=== PATIENT | male | born 1960 | race Caucasian/White ===

== ENCOUNTER → 2017-02-08 | Outpatient (CLI) | payer MEDICAID ==
[2017-02-08 09:56] LABS: ALT 51 U/L (21-72); AST 37 U/L (17-59); Alkaline Phosphatase 57 U/L (38-126); Anion Gap 13 mmol/L; Blood Urea Nitrogen 10 mg/dL (9-20); Calcium 9.7 mg/dL (8.4-10.2); Carbon Dioxide 26 mmol/L (22-30); Chloride 105 mmol/L (98-107); Cholesterol 204 mg/dL (<200); Glucose 89 mg/dL (74-99); HDL Cholesterol 72 mg/dL (40-60); Non-African American GFR(MDRD) >60 (>60 ml/min/1.73 sqM); Potassium 4.3 mmol/L (3.5-5.1); Sodium 144 mmol/L (137-145); Total Protein 7.8 g/dL (6.3-8.2); Triglycerides 149 mg/dL (<150)
[2017-02-08 10:10] LABS: Basophils # (A) 0.1 k/uL (0-0.2); Basophils % (A) 1 %; CH 35.4; CHCM 34.4; Eosinophils # (A) 0.3 k/uL (0-0.7); Eosinophils % (A) 7 %; HCT 49.9 % (39.0-53.0); HGB 16.4 gm/dL (13.0-17.5); Luc # (Auto) 0.19; Luc % (Auto) 4; Lymphocytes # (A) 1.7 k/uL (1.0-4.8); Lymphocytes % (A) 33 %; MCHC 32.9 g/dL (31.0-37.0); MCV 103.3 fL (80.0-100.0); Macrocytosis Slight; Mean Platelet Volume 7.6; Monocytes # (A) 0.5 k/uL (0-1.0); Monocytes % (A) 9 %; Neutrophils # (A) 2.4 k/uL (1.3-7.7); Neutrophils % (A) 47 %; RBC 4.83 m/uL (4.30-5.90); RDW 12.2 % (11.5-15.5); WBC 5.1 k/uL (3.8-10.6); WBC (Perox) 4.98
--- NOTE | 2017-02-08 11:04 | ECHOS ---
DATE OF SERVICE: 02/08/2017 AGE: 56Y SEX: M HT: 71" WT: 169 lbs. Protocol Mike: X Others: Stress Echo Stage: 3 Dur. of Exercise: 7:00 *Heart Rate Blood Pressure *Rest: 88 Rest: 154/79 * *Max. Achieved: 167 Maximum BP: 191/85 85% PMHR: 141 100% PMHR: 166 *METS: 8.0 INDICATIONS: Abnormal EKG. MEDICATIONS: Simvastatin, bisoprolol, Tramadol, Didi. Baseline EKG shows sinus rhythm, normal axis, poor R-wave progression. Patient exercised on Mike protocol for a total of 7 minutes, achieving 8 METs, 99% of predicted maximal heart rate without chest pain. At peak exercise, patient became very short of breath and developed [address]-segment depression in the inferolateral leads. Baseline echo shows normal left ventricular size and systolic function with an ejection fraction of 50% to 55%. The inferoposterior wall appears hypokinetic suggestive of prior myocardial infarction. Post exercise, there is normal hyperdynamic response of the anterior wall, lateral wall, septum and the inferior wall. The inferoposterior wall remains unchanged. CONCLUSION: 1. Average exercise tolerance. 2. Abnormal stress test by EKG criteria. 3. Abnormal stress echocardiogram as described above.
== END | disposition home or self-care (01) ==
LOC: RADNMMAIN 08:40
PROVIDERS: ATTEND Family Medicine
DX: R94.31 Abnormal electrocardiogram [ECG] [EKG] (principal); I10 Essential (primary) hypertension
CPT/HCPCS: 80053; 80061; 84439; 84443; 85025; 93017; 93350

== ENCOUNTER 2017-04-05 07:19 | Day surgery (SDC) | payer MEDICAID ==
[2017-04-03 14:52] VITALS: BMI 23.4
[~2017-04-05 07:19] MED LIST: ALPRAZolam 0.25 MG TAB PO PRN; ASPIRIN 325 MG TAB PO ONE; SODIUM CHLORIDE 0.9% 1,000 ML in EMPTY BAG 1 BAG IV ONE
[2017-04-05] MEDS ORDERED: ASPIRIN 81 MG CHEW ONE (07:21)
[2017-04-05 07:28] VITALS: BP 168/98; PULSE 76; RESP 16; TEMP 98.1
[2017-04-05] MEDS ORDERED: SODIUM CHLORIDE 0.9% 1,000 ML IV ONE (07:30)
[2017-04-05] MEDS ORDERED: LIDOCAINE 2% INJ 20 MG/ML (20 ML MDV) ONE (07:41)
[2017-04-05 07:42] LABS: Basophils # (A) 0.1 k/uL (0-0.2); Basophils % (A) 1 %; CH 35.5; CHCM 34.5; Eosinophils # (A) 0.5 k/uL (0-0.7); Eosinophils % (A) 7 %; HCT 49.2 % (39.0-53.0); HDW 2.12; HGB 16.4 gm/dL (13.0-17.5); Luc # (Auto) 0.16; Luc % (Auto) 3; Lymphocytes # (A) 1.7 k/uL (1.0-4.8); Lymphocytes % (A) 28 %; MCH 34.4 pg (25.0-35.0); MCHC 33.2 g/dL (31.0-37.0); MCV 103.4 fL (80.0-100.0); Macrocytosis Slight; Mean Platelet Volume 7.3; Monocytes # (A) 0.4 k/uL (0-1.0); Monocytes % (A) 7 %; Neutrophils # (A) 3.3 k/uL (1.3-7.7); Neutrophils % (A) 54 %; RBC 4.76 m/uL (4.30-5.90); RDW 12.5 % (11.5-15.5); WBC 6.2 k/uL (3.8-10.6); WBC (Perox) 6.07
[2017-04-05 07:50] LABS: Anion Gap 9 mmol/L; Blood Urea Nitrogen 13 mg/dL (9-20); Calcium 9.5 mg/dL (8.4-10.2); Carbon Dioxide 24 mmol/L (22-30); Chloride 108 mmol/L (98-107); Glucose 89 mg/dL (74-99); Non-African American GFR(MDRD) >60 (>60 ml/min/1.73 sqM); Sodium 141 mmol/L (137-145)
[2017-04-05] MEDS ORDERED: fentaNYL (PF) 50 MCG/ML 2 ML AMP ONE (07:52)
[2017-04-05 07:53] LABS: Potassium 4.8 mmol/L (3.5-5.1)
[2017-04-05] MEDS ORDERED: MIDAZOLAM 2 MG/2 ML VIAL ONE (07:53)
[2017-04-05] MEDS ORDERED: amLODIPine 5 MG TAB PO STA (08:28)
[2017-04-05] MEDS ORDERED: amLODIPine 5 MG TAB ONE (08:29)
== END 2017-04-05 08:43 | disposition home or self-care (01) ==
LOC: CATHCVL 07:19
PROVIDERS: ATTEND Internal Medicine Cardiovascular Disease
DX: R07.9 Chest pain, unspecified (principal); R94.39 Abnormal result of other cardiovascular function study; Z53.8 Procedure and treatment not carried out for other reasons; I10 Essential (primary) hypertension; E78.00 Pure hypercholesterolemia, unspecified; E78.5 Hyperlipidemia, unspecified; Z82.49 Family history of ischemic heart disease and other diseases of the circulatory system; Z79.899 Other long term (current) drug therapy; Z88.5 Allergy status to narcotic agent; F17.290 Nicotine dependence, other tobacco product, uncomplicated
CPT/HCPCS: 80048; 85025

== ENCOUNTER → 2017-04-12 | Day surgery (SDC) | payer MEDICAID ==
[2017-04-10 13:14] VITALS: BMI 23.3
[~2017-04-12] MED LIST changes: +ASPIRIN 81 MG CHEW PO SCH; +ATORVASTATIN 20 MG TAB PO SCH; +IOHEXOL 350 MG/ML 125ML BOTTLE INJ ONE; +LIDOCAINE 2% INJ 20 MG/ML SQ ONE; +LISINOPRIL 5 MG TAB PO SCH; +METOPROLOL TARTRATE 25 MG TAB PO SCH; +METOPROLOL TARTRATE 25 MG TAB PO STA; +MIDAZOLAM 2 MG/2 ML VIAL IVP ONE; +MIDAZOLAM 2 MG/2 ML VIAL ONE; +NITROGLYCERIN 1000MCG/10ML SYRINGE INTRACORON ONE; +RX INFO: IV CONTRAST WAS GIVEN 1 EACH MISC MISCELLANE PRN; +SODIUM CHLORIDE 0.9% 1,000 ML IV SCH; +diphenhydrAMINE 50 MG/ML 1 ML VIAL IVP ONE; +diphenhydrAMINE 50 MG/ML 1 ML VIAL ONE; +fentaNYL (PF) 50 MCG/ML 2 ML AMP IV ONE; +fentaNYL (PF) 50 MCG/ML 2 ML AMP ONE
[2017-04-12 07:40] VITALS: TEMP 98.3
--- NOTE | 2017-04-12 09:09 | P.PCN ---
Date of Procedure: 04/12/17 Preoperative Diagnosis: Positive stress test and chest pain Postoperative Diagnosis: Borderline 60% stenosis in the mid LAD which is calcified Procedure(s) Performed: Left heart catheterization Implants: Indications for Procedure: Operative Findings: Description of Procedure: HISTORY: This is a 56-year-old gentleman with history of hypertension, hypercholesterolemia and family history of ischemic heart disease who has been experiencing chest pain and shortness of breath. Patient had a stress echocardiogram. Patient developed shortness of breath, and [address] depression on the EKGs. Stress echo was reported as showing a fixed defect in the inferior wall. Patient is advised to have cardiac catheterization for definitive diagnosis. Patient also given the option of having a nuclear stress test but preferred to have cardiac cath. CONSENT:I have discussed the risks, benefits and alternative therapies for the above-mentioned procedure and for both sedation/analgesia as well as necessary blood product administration, if indicated, as they pertain to this patient. The patient has indicated understanding and acceptance of the risks and procedures discussed. PROCEDURE: Patient was brought to the lab in a fasting state. Patient was given some IV sedation. The right groin is infiltrated with lidocaine and right femoral artery was entered using Seldinger technique. A 6-Kosovan catheter was left in place and selective coronary arteriography was performed. Patient tolerated the procedure well. Femoral angiogram was performed and Angio -Seal was applied for hemostasis. No immediate complications were noted and patient was transferred to [facility] in a stable condition HEMODYNAMICS: The aortic pressure is 130/80. Left ankle end-diastolic pressure is 8. There was no gradient across the aortic valve SELECTIVE CORONARY ARTERIOGRAPHY: LEFT MAIN: Normal length and patent THE LEFT ANTERIOR DESCENDING CORONARY ARTERY: Good caliber vessel with a calcified plaque in the midportion with about 50-60% stenosis. The rest of the vessel are free of occlusive disease. THE LEFT CIRCUMFLEX AND IS CORONARY ARTERY: This is a moderate caliber vessel free of any significant occlusive disease. THE RIGHT CORONARY ARTERY: This is a moderate caliber vessel and codominant without any significant obstructive disease LEFT VENTRICULOGRAPHY: Not performed FINAL IMPRESSION: #1. Moderate plaque in the mid LAD with about 50-60% stenosis. The rest of the vessels are free of occlusive disease PLAN: Maximum medical therapy and this factor modification. May consider doing a nuclear stress test to rule out any ischemia in the LAD territory. PROGNOSIS: Fair
[2017-04-12 10:01] VITALS: RESP 16
[2017-04-12 13:28] VITALS: BP 148/85; PULSE 84
== END | disposition home or self-care (01) ==
LOC: CATHCVL 07:13
PROVIDERS: ATTEND Internal Medicine Cardiovascular Disease
DX: I25.118 Atherosclerotic heart disease of native coronary artery with other forms of angina pectoris (principal); I25.84 Coronary atherosclerosis due to calcified coronary lesion; I10 Essential (primary) hypertension; Z82.49 Family history of ischemic heart disease and other diseases of the circulatory system; F17.290 Nicotine dependence, other tobacco product, uncomplicated; E78.00 Pure hypercholesterolemia, unspecified; E78.5 Hyperlipidemia, unspecified; Z88.5 Allergy status to narcotic agent
CPT/HCPCS: 93458; 99152; 99153; C1760; C1894; C1769; J2001; J2250; J1200; J3010; Q9967

== ENCOUNTER → 2017-11-08 | Outpatient (CLI) | payer MEDICAID ==
--- NOTE | 2017-11-08 12:09 | FL ---
EXAMINATION TYPE: FL UGI air w esophagus DATE OF EXAM: 11/08/2017 COMPARISON: NONE HISTORY: Worsening gastroesophageal reflux for 6 months. TECHNIQUE: A double contrast UGI and esophagram study is performed utilizing 2 minutes and 11 second s of fluoroscopy time with 60 images saved. FINDINGS: The esophagus shows normal motility and emptying into the stomach. No evidence of hiatal hernia or s tricture noted. The stomach shows normal distensibility, peristalsis, and mucosal folds. Focal pooling of contrast is seen along the greater curvature of the stomach in the region of the gastric fundus on multiple imag es. No heaping of adjacent mucosa is seen to suggest inflammatory change although this finding remain s suspicious for a focal ulcer. This is superimposed upon diffuse enlargement of the rugal folds most compatible with gastritis. Minimal significant gastroesophageal reflux was seen during real time per formance of this study to the level of the distal esophagus just cranial to the gastroesophageal junc tion. The duodenal bulb, sweep, and proximal small bowel loops are unremarkable. IMPRESSION: 1. Focal pooling of radiotracer within the gastric fundus along the greater curvature suspicious for ulceration. Direct visualization is recommended. 2. Diffuse rugal fold thickening most commonly related to gastritis. 3. No evidence of hiatal hernia. 4. Minimal gastroesophageal reflux just cranial to the gastroesophageal junction in the gravity indep endent portion while utilizing the Valsalva maneuver. No reflux in the gravity dependent portion of t he exam.
== END | disposition home or self-care (01) ==
LOC: RADFLMAIN 10:43
PROVIDERS: ATTEND Family Medicine
DX: K21.9 Gastro-esophageal reflux disease without esophagitis (principal); K22.8 Other specified diseases of esophagus; I49.3 Ventricular premature depolarization
CPT/HCPCS: 74246; 93225; 93226

== ENCOUNTER → 2017-11-22 | Outpatient (CLI) | payer MEDICAID ==
[2017-11-22 10:28] LABS: Non-African American GFR(MDRD) >60 (>60 ml/min/1.73 sqM)
--- NOTE | 2017-11-22 13:14 | MR ---
EXAMINATION TYPE: MR brain wo/w con DATE OF EXAM: 11/22/2017 COMPARISON: NONE HISTORY: Cortical blindness, right side of brain TECHNIQUE: Multiplanar, multisequence images of the brain and brainstem is performed without and with IV contras t, utilizing 7.5 mL intravenous Gadavist . FINDINGS: Diffusion weighted images demonstrate no evidence of a recent infarct or other diffusion ab normality. There is no extra-axial fluid collection. Punctate right frontal, left frontal and left p arietal foci of T2/FLAIR hyperintensity measuring 1 to 2 mm are seen within the periventricular and s ubcortical white matter on inversion recovery axial fat sat images 15, 17, and 22. The ventricular sy stem and cisternal spaces are normal in size and appearance. The brain volume is age appropriate. Midline structures demonstrate normal morphology. The craniocervical junction appears within normal limits. Major flow voids are maintained with note made of a right dominant and tortuous vertebral art manpreet. Mild mucosal thickening is seen within the left maxillary and ethmoid sinuses. Scant mucosal thi ckening is noted within the right maxillary and frontal as well as sphenoid sinuses. The dural venous sinuses appear patent. The globes are intact and symmetric maintaining a normal configuration. Optic nerves are symmetric as are the nerve sheaths. No cerebellar pontine angle mass. Incidental note is made of a 3 mm pineal gland cyst. An extra-axial left anterior cranial fossa mass with mass effect upon the gyrus rectus is seen there is T1 and T2 isointense to philip matter and is bilobed best seen on T1 axial postcontrast fat sat imag e 10 measuring 2.1 x 1.3 x 1.2 cm. This is homogeneous internal enhancement and abuts the A1 and prox imal A2 segments of the anterior cerebral artery as well as the M1 segment of the left middle cerebra l artery. This is separate from the pituitary gland. IMPRESSION: 1. Extra-axial anterior cranial fossa mass abutting and nearly encasing the left anterior cerebral an d middle cerebral arteries measuring 2.1 cm. This has MR features favoring a meningioma, however aneu rysm should be excluded with MRA. 2. Few nonenhancing foci of white matter change, likely on the basis of chronic microangiopathy. 3. Mild pansinusitis.
== END | disposition home or self-care (01) ==
LOC: RADMRIMAIN 09:55
PROVIDERS: ATTEND Family Medicine
DX: G93.89 Other specified disorders of brain (principal); R90.82 White matter disease, unspecified; H47.611 Cortical blindness, right side of brain
CPT/HCPCS: 82565; 70553; 36415; A9581

== ENCOUNTER 2017-11-23 13:34 | Day surgery (SDC) | payer MEDICAID ==
[2017-11-21 14:58] VITALS: BMI 23.7
[~2017-11-23 13:34] MED LIST changes: -ALPRAZolam 0.25 MG TAB PO PRN; -ASPIRIN 325 MG TAB PO ONE; -ASPIRIN 81 MG CHEW PO SCH; -ATORVASTATIN 20 MG TAB PO SCH; -IOHEXOL 350 MG/ML 125ML BOTTLE INJ ONE; +LACTATED RINGERS 1,000 ML IV SCH; -LIDOCAINE 2% INJ 20 MG/ML SQ ONE; -LISINOPRIL 5 MG TAB PO SCH; -METOPROLOL TARTRATE 25 MG TAB PO SCH; -METOPROLOL TARTRATE 25 MG TAB PO STA; -MIDAZOLAM 2 MG/2 ML VIAL IVP ONE; -MIDAZOLAM 2 MG/2 ML VIAL ONE; -NITROGLYCERIN 1000MCG/10ML SYRINGE INTRACORON ONE; -RX INFO: IV CONTRAST WAS GIVEN 1 EACH MISC MISCELLANE PRN; -SODIUM CHLORIDE 0.9% 1,000 ML IV SCH; -SODIUM CHLORIDE 0.9% 1,000 ML in EMPTY BAG 1 BAG IV ONE; -diphenhydrAMINE 50 MG/ML 1 ML VIAL IVP ONE; -diphenhydrAMINE 50 MG/ML 1 ML VIAL ONE; -fentaNYL (PF) 50 MCG/ML 2 ML AMP IV ONE; -fentaNYL (PF) 50 MCG/ML 2 ML AMP ONE
[2017-11-23 13:44] VITALS: TEMP 98.4
[2017-11-23] MEDS ORDERED: LACTATED RINGERS 1,000 ML IV ONE (13:44)
[2017-11-23] MEDS ORDERED: LIDOCAINE 1% 20 ML VIAL (10MG/ML) FOR IV START INTRADERMA ONE (13:56)
[2017-11-23] MEDS ORDERED: PROPOFOL 10 MG/ML 20 ML VIAL IV ONE (14:58)
[2017-11-23] MEDS ORDERED: LIDOCAINE 1% INJ 10MG/ML (20 ML MDV) ONE (14:58)
[2017-11-23 15:29] VITALS: RESP 16
[2017-11-23 15:39] VITALS: BP 165/85; PULSE 74
--- NOTE | 2017-11-23 15:39 | P.PCN ---
Date of Procedure: 11/23/17 Procedure(s) Performed: Procedure: Esophagogastroduodenoscopy and biopsy. Preoperative diagnosis: Epigastric pain and abnormal upper GI. Postoperative diagnosis: 1. Small sliding hiatal hernia with mild corrugations in the esophagus raising the possibility of eosinophilic esophagitis. 2. Gastritis but no abnormalities to correspond to the barium pooling on upper GI. 3. Mild duodenitis. 4. Multiple biopsies obtained from the duodenum, antrum and esophagus. Preparation sedation: Was provided by anesthesia. Brief clinical history: The patient is a 57-year-old male who is referred for this evaluation because of epigastric pains and atypical chest pains that he has been experiencing for the last 6 months or so. He had a barium swallow and upper GI earlier this month that showed pooling of barium in the stomach raising the possibility of ulcers. He was referred for this evaluation to assess for peptic ulcer disease or other pathology. Procedure: With the patient on his left lateral decubitus position and after informed consent and adequate sedation, I passed the Olympus-GIF 160 video upper endoscope through the cricopharyngeus down the esophagus. GE junction was around 41 cm from the incisors and there was a small sliding hiatal hernia. The esophagus showed mild corrugations raising the possibility of eosinophilic esophagitis but I did not see any obvious ulcers or obstructing strictures. The endoscope was then passed into the stomach which was insufflated with air and inspected in detail including the retroflex view in the cardia. There was mottling and erythema in the stomach mostly in the antrum with areas of submucosal hemorrhages but no ulcers, erosions or abnormalities to correspond to the findings on the barium study. Pyloric channel did not show any ulcers. Duodenal bulb showed some erythema but no ulcers or erosions. Post bulbar area and descending duodenum appeared within normal limits. Because of his symptoms and those findings, I obtained biopsies from the duodenum, antrum and esophagus then the endoscope was withdrawn. The patient tolerated the procedure well. Plan: The patient was reassured. Will await biopsy results and make further recommendations based on his course and biopsy results. He will follow up with you as planned and I will keep you updated on his progress.
== END 2017-11-23 15:49 | disposition home or self-care (01) ==
LOC: ORWHC2ENDO 13:34
DX: K29.50 Unspecified chronic gastritis without bleeding (principal); K29.80 Duodenitis without bleeding; K21.0 Gastro-esophageal reflux disease with esophagitis; K44.9 Diaphragmatic hernia without obstruction or gangrene; I10 Essential (primary) hypertension; H47.619 Cortical blindness, unspecified side of brain; E78.5 Hyperlipidemia, unspecified; F17.290 Nicotine dependence, other tobacco product, uncomplicated; Z88.5 Allergy status to narcotic agent; Z79.82 Long term (current) use of aspirin; Z79.2 Long term (current) use of antibiotics; Z79.899 Other long term (current) drug therapy
CPT/HCPCS: 88305; 88342; 43239; J2001; J2704

== ENCOUNTER → 2018-02-21 | Outpatient (CLI) | payer MEDICAID ==
[2018-02-21 08:32] LABS: Blood Urea Nitrogen 11 mg/dL (9-20)
--- NOTE | 2018-02-21 09:52 | MR ---
EXAMINATION TYPE: MR angio head wo con DATE OF EXAM: 02/21/2018 COMPARISON: MRI 11/15/1717 HISTORY: Benign neoplasm of meninges, unspecified TECHNIQUE: Utilizing 3-D [id number] intracranial MRA of the [place] was performed. FINDINGS: The vertebrobasilar and carotid systems are patent. There is no sizable aneurysm or vascular malform ation. There is a hypoplastic A1 segment of the right anterior cerebral artery. Left vertebral artery is dim inutive in size with a dominant right vertebral artery. IMPRESSION: 1. No evidence of vascular malformation or sizable aneurysm.
--- NOTE | 2018-02-21 10:02 | MR ---
EXAMINATION TYPE: MR brain wo/w con DATE OF EXAM: 02/21/2018 COMPARISON: 11/22/2017 HISTORY: Benign neoplasm of meninges, unspecified TECHNIQUE: Multiplanar, multisequence images of the brain and brainstem is performed without and with IV contras t, utilizing 7.5 mL intravenous Gadavist . FINDINGS: Diffusion weighted images demonstrate no evidence of a recent infarct or other diffusion ab normality. There is no extra-axial fluid collection or significant white matter signal abnormality. The ventricular system and cisternal spaces are normal in size and appearance. The brain volume is age appropriate. Midline structures demonstrate normal morphology. The craniocervical junction appears within normal limits. Post contrast images demonstrate no abnormal enhancement. The dural venous sinuses appear pa tent. There is extensive changes of ethmoidal sinusitis which appears chronic. White matter: There are approximately 3 punctate areas of abnormal signal within the left parietal wh ite matter of doubtful clinical significance. There is again is noted to be enhancing mass which appears extra-axial within the anterior cranial fo ssa measuring 2.1 x 1.3 x 1.2 cm. There is mild indentation along the gyrus rectus and abuts the left margin of the optic chiasm. IMPRESSION: 1. Stable extra-axial mass involving the anterior cranial fossa unchanged in size or appearance and m ost typical of a meningioma. Persistent mild mass effect upon the inferior frontal lobe noted. There also is mass effect upon the optic chiasm greater on the left. Correlate for ocular abnormalities.
== END | disposition home or self-care (01) ==
LOC: RADMRIMAIN 08:05
PROVIDERS: ATTEND Neurological Surgery
DX: G93.9 Disorder of brain, unspecified (principal)
CPT/HCPCS: 82565; 84520; 70544; 70553; A9581